=== PATIENT | female | born 1985 | race Caucasian/White ===

== ENCOUNTER 2025-02-17 05:15 | Emergency (ER) | payer BC, SELFPAY ==
--- NOTE | 2025-02-17 | XR_ITS ---
Examination: MRI brain without intravenous contrast. Date and time of exam: February 17, 2025, 1015 hrs. Indications: Blurred vision headaches dizziness today Technique: Multiple axial and sagittal images of the brain obtained. Siemens high-resolution 1.5 Lucy short bore scanners utilized. Sagittal sections, T1-weighted, TR 500, TE 14, are performed. Axial sections proton-density and T2-weighted have been obtained. Inversion recovery axial images, TR 9, 260, TE 111, TI 2500. Diffusion weighted images, axial sections, TR 4800, TE 128, B value 1000 Axial sections, ADC map, TR 4800, TE 128 Findings: Enlargement of the sella turcica is not present. The optic chiasm and infundibular are not remarkable. Prepontine and interpeduncular cisterns are not enlarged. There is no localized enlargement of the medulla or frantz. Fourth ventricle and cerebellar tonsils appear normal in position. No subacute area of hemorrhage density is seen. Mass in the cerebellopontine angle region is not evident. Globes symmetrical. Orbital musculature including medial lateral rectus muscles do not exhibit abnormality. Diffusion-weighted images demonstrate no focus of restricted diffusion.. Increased white matter signal not seen. Mass effect upon the ventricular system is not identified. Impression: Negative for acute hemorrhage, mass effect or midline shift. No acute infarct. No MR findings of demyelinating disease. Negative for mastoiditis
[2025-02-17 05:16] VITALS: BMI 25.0
[2025-02-17 05:24] VITALS: BP 108/68; PULSE 109; RESP 28; TEMP 36.1; O2SAT 98
--- NOTE | 2025-02-17 05:41 | EKG_ITS ---
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
--- NOTE | 2025-02-17 06:19 | XR_ITS ---
Examination: CT brain head without contrast. 2-D sagittal coronal reconstructions Date and time of exam:February 17, 2025, 0637 hours INDICATIONS: Dizziness episodes beginning 4 hours ago CTDI: vol (mGy):45.6 DLP: (mGycm):8 Technique: Multiple CT axial sections of the brain have been obtained, 5 mm slice thickness. Contrast has not been administered. 2-D sagittal, coronal reconstructions have been obtained Low dose protocols were performed. One or more of the following dose reduction techniques were used; automated exposure control, adjustment of the mA and/or KV according to patient size, use of iterative reconstruction technique. Findings: No significant ventricular enlargement. Intra-axial or extra-axial hemorrhage density is not seen. No mass effect or midline shift Basal cisterns are not remarkable. Fourth ventricle is midline. Cranial vault intact. Impression: Negative for acute hemorrhage, mass effect or midline shift Advise clinical correlation and follow up accordingly.
--- NOTE | 2025-02-17 06:31 | PD.EDRME ---
Rapid Medical Screening Exam RME Arrival date/time: 02/17/25 05:15 Chief Complaint: Shortness of Breath/Dyspnea Time Seen by Provider: 02/17/25 06:11 Vital signs: Vital Signs Temperature 97.0 F 02/17/25 05:24 Pulse Rate 109 H 02/17/25 05:24 Respiratory Rate 28 H 02/17/25 05:24 Blood Pressure 108/68 02/17/25 05:24 Pulse Oximetry (%) 98 02/17/25 05:24 Oxygen Delivery Method Room Air 02/17/25 05:24 Vital signs reviewed by provider: Yes RME Narrative: Patient is a 39-year-old female with medical history notable for Chiari malformation that in the emergency department with concerns for headache. Patient states that she is in the care of a neurologist and is pending an appointment to see a neurosurgeon next month. States that over the last 3 years her symptoms have been getting worse, and at times will present with numbness in her face as well as numbness on her body. Patient states that usually this is precipitated by coughing sneezing or other similar activities. Patient states that this time her headache woke her up from sleep and was not getting better so she came to the emergency department. Patient does not know what makes her symptoms better however she is allergic to antibiotics including penicillins and cephalosporins, diazepam and gabapentin. Does not drink use drugs or alcohol. No recent travel sick contacts fevers chills nausea abdominal pain dysuria hematuria melena bloody stools. Patient states that she had 1 episode of urinary incontinence last week after an episode of coughing however states that the urinary incontinence was not during the cough. Denies any numbness in her lower extremities or saddle anesthesia.
[2025-02-17 07:20] LABS: Collection Type, Urine Clean Catch
[2025-02-17 07:26] LABS: Basophils # (Auto) 0.0 Thou/mm3 (0.0-0.2); Basophils % (Auto) 0 % (0-2.5); Eosinophils # (Auto) 0.0 Thou/mm3 (0.0-0.5); Eosinophils % (Auto) 0 % (0-10); Hematocrit 43.7 % (36.0-46.0); Hemoglobin 15.4 g/dL (12.0-16.0); Immature Granulocytes Auto 0.03 Thou/mm3 (0.00-0.00); Lymphocytes # (Auto) 1.4 Thou/mm3 (1.0-4.8); Lymphocytes % (Auto) 19 % (10-50); Mean Corpuscular HGB Conc 35.2 g/dl (31.0-37.0); Mean Corpuscular Hemoglobin 31.2 pg (25.0-35.0); Mean Corpuscular Volume 89 fL (80-100); Monocytes # (Auto) 0.5 Thou/mm3 (0.0-0.8); Monocytes % (Auto) 7 % (0-12); Neutrophils # (Auto) 5.3 Thou/mm3 (1.8-7.7); Neutrophils % (Auto) 73 % (37-80); Nucleated Red Blood Cell # 0.00 Thou/mm3 (0.00-0.00); Nucleated Red Blood Cell % 0 /100 WBC (0); Platelet Count 278 Thou/mm3 (140-440); RDW Standard Deviation 38.4 fL (36.4-46.3); Red Blood Count 4.93 Miln/mm3 (4.00-5.20); White Blood Count 7.3 Thou/mm3 (3.6-11.0)
[2025-02-17 07:32] LABS: HCG,Qualitative Serum Negative
[2025-02-17 07:39] LABS: Alanine Aminotransferase 14 U/L (10-49); Albumin, Serum 4.8 gm/dL (3.5-5.0); Albumin/Globulin Ratio 1.7 (1.2-2.2); Alkaline Phosphatase 57 U/L (46-116); Anion Gap 12 (7-16); Aspartate Amino Transferase 20 U/L (0-34); BUN/Creatinine Ratio 5 Ratio (12-20); Bilirubin,Total 1.0 mg/dL (0.3-1.2); Blood Urea Nitrogen < 5 mg/dL (9-23); Calcium 10.2 mg/dL (8.3-10.6); Calcium (Corrected) 10.2 mg/dL (8.5-10.1); Carbon Dioxide 24.7 mMol/L (20.0-31.0); Chloride 105 mMol/L (98-107); Creatinine (Component) 1.0 mg/dL (0.6-1.3); Estimated Creatinine Clearance 69.3 mL/min (>60); Globulin 2.8 gm/dL (2.3-3.5); Glucose 89 mg/dL (74-106); Osmolality,Calculated 279 (275-295); Potassium 3.9 mMol/L (3.4-5.1); Sodium 142 mMol/L (136-145); Total Protein 7.6 gm/dL (5.7-8.2); eGFR > 60 See Note
[2025-02-17 08:21] LABS: Bilirubin,Urine Negative (Negative); Blood,Urine Negative (Negative); Clarity,Urine Clear (Clear/Hazy); Color,Urine Colorless (Lt Yel-Yel); Culture Indicated,Urine Not Indicated; Glucose, Urine Negative (Negative); Ketones,Urine 1+ (Negative); Leukocyte Esterase,Urine Negative (Negative); Nitrite,Urine Negative (Negative); PH,Urine 6.5 (5.0-7.0); Protein,Urine Negative (Neg - Trace); RBC,Urine < 1 /hpf (0-3); Specific Gravity,Urine 1.004 (1.001-1.035); Squamous Epithelial Cell,Urine 3 /hpf (0-5); Urobilinogen,Urine Negative mg/dL (0.0-1.0); WBC,Urine < 1 /hpf (0-5)
[2025-02-17 08:45] VITALS: BP 110/77; PULSE 86; RESP 19; TEMP 36.8; O2SAT 99
--- NOTE | 2025-02-17 09:04 | PD.EDHA ---
ED Headache RME/HPI General Chief Complaint: Shortness of Breath/Dyspnea Stated Complaint: DIFFICULTY BREATHING AND DIZZY Time Seen by Provider: 02/17/25 06:11 Arrival date/time: 02/17/25 05:15 Limitations: no limitations RME / HPI RME / HPI Narrative: DR. CLINTON HOOVER ED EVALUATION: 39-year-old female with a history of Chiari malformation presents to the Emergency Department for evaluation of a severe throbbing headache rated 10/10, which improved to 7/10 after treatment with Reglan, Benadryl, and IV fluids. She reports associated dizziness and episodes of blurry vision during these headaches. The patient follows with a neurologist and has a neurosurgery appointment scheduled for next month. She states that her symptoms have progressively worsened over the last three years and are often triggered by coughing, sneezing, or similar activities. Today?s headache was different in that it woke her from sleep and did not improve, prompting her visit. She also reports a single episode of urinary incontinence last week following a coughing episode, though the incontinence did not occur during the cough. She denies numbness in the lower extremities, recent travel, sick contacts, fevers, chills, nausea, abdominal pain, dysuria, hematuria, melena, or hematochezia. She does not use alcohol, tobacco, or recreational drugs. Allergies include penicillins, cephalosporins, diazepam, and gabapentin. Related Data Previous Rx's ?Medication ?Instructions ?Recorded ganciclovir 0.15 % eye gel (Zirgan) 1 drp Right eye 5 TIMES DAILY 12/02/13 Infection ##1 hydrocodone 5 mg-acetaminophen 325 1 tab PO BID PRN pain #10 tabs 02/14/24 mg tablet Allergies Allergy/AdvReac Type Severity Reaction Status Date / Time diazepam (From Valium) Allergy Severe Anxiety Verified 02/17/25 10:02 cephalexin Allergy Unknown Rash Verified 02/20/24 03:40 latex Allergy Unknown Rash Verified 02/20/24 03:40 Penicillins Allergy Unknown Rash Verified 02/20/24 03:40 Sulfa (Sulfonamide Allergy Unknown Rash Verified 02/20/24 03:40 Antibiotics) cefdinir Allergy Rash Verified 02/20/24 03:40 Review of Systems Review of Systems Systems Reviewed: All systems reviewed, normal except as documented Past Medical History Past Medical History NEUROLOGIC: Positive Neurological Disorders (CHIARI MALFORMATION) Family History FAMILY HISTORY: Positive Family Cancer (PT'S FATHER NON-HODGKIN'S) Social History SMOKING STATUS: Never smoker ED Exam General Limitations: Present no limitations General appearance: Present alert and in no apparent distress Head Head exam: Present atraumatic, normocephalic and normal inspection Eye Eye exam: Present nystagmus (mild right sided horizontal nystagmus) ENT ENT exam: Present normal exam, normal oropharynx and mucous membranes moist Neck Neck exam: Present normal inspection, full ROM and trachea midline Chest Chest inspection: Present normal inspection and symmetric chest wall rise Respiratory Respiratory exam: Present normal lung sounds bilaterally Cardiovascular Cardiovascular exam: Present regular rate, normal rhythm and normal heart sounds Abdominal Exam Abdominal exam: Present soft and normal bowel sounds Extremities Exam Extremities exam: Present normal inspection and full ROM Back Exam Back exam: Present normal inspection and full ROM Neurological Exam Neurological exam: Present alert, oriented X3 and CN II-XII intact Psychiatric Psychiatric exam: Present normal affect and normal mood Skin Skin exam: Present warm, dry, intact and normal color Course Quality Measures none Orders Category Date Time Status EKG (ED ONLY) *Do not use* NOW Care 02/17/25 05:41 Completed MRI Screening NOW Care 02/17/25 06:[address] head/brain wo con Stat Exams 02/17/25 06:19 Completed EKG (ED Only) Stat Exams 02/17/25 05:41 Draft MR head/brain wo con Stat Exams 02/17/25 Completed CBC Stat Lab 02/17/25 06:56 Completed CMP [Comprehensive Metabolic Panel] Stat Lab 02/17/25 06:56 Completed HCG,Qualitative Serum Stat Lab 02/17/25 06:56 Completed UA, C/S IF [Urinalysis, C/S if Indicated] Stat Lab 02/17/25 07:06 Completed Acetaminophen Ivpb [Ofirmev Inj] Med 02/17/25 09:36 Discontinued 1,000 mg in 100 ml IV NOW Diazepam Inj [Valium Inj] Med 02/17/25 09:49 Discontinued 2.5 mg IVP X1 ONE DiphenhydrAMINE INJ [Benadryl Inj] Med 02/17/25 06:18 Discontinued 25 mg IVP X1 ONE LORazepam [Ativan] Med 02/17/25 10:01 Discontinued 0.5 mg PO X1 ONE Metoclopramide Inj [Reglan Inj] Med 02/17/25 06:18 Discontinued 5 mg IVP STAT STA Ringers Lactated 1000 ml [Lactated Ringers] 1,000 ml Med 02/17/25 06:17 Discontinued IV 999 mls/hr Vital Signs Vital signs: Vital Signs Temperature 97.0 F 02/17/25 05:24 Pulse Rate 109 H 02/17/25 05:24 Respiratory Rate 28 H 02/17/25 05:24 Blood Pressure 108/68 02/17/25 05:24 Pulse Oximetry (%) 98 02/17/25 05:24 Oxygen Delivery Method Room Air 02/17/25 05:24 Headache MDM Narrative MDM Narrative:: I, Katy Trinidad, bronson scribing for and in the presence of Dr. Mitchell. Patient data External records reviewed:: [facility] previous records Clinical information provided by:: patient and spouse Social determinants that could affect healthcare access:: none Patient has the following chronic illnesses:: History of Chiari malformation. Allergies include penicillins, cephalosporins, diazepam, and gabapentin. How is presenting disease/condition affected by chronic disease/condition?: exacerbated by Evaluation data The following diagnostics were reviewed and interpreted by me:: lab results, radiology exam(s) and EKG tracing(s) (My interpretation: EKG performed at 0549 hours, sinus tachycardia, rate 102, normal axis, no ectopy, no signs of acute ischemia, no STEMI) Lab and/or radiology exams considered but not ordered:: none Interpretation Summary: Procedure(s): CT head/brain wo con Accession Number(s): [id number] cc: Brian Pleitez MD; Rina Torres MD~ Examination: CT brain head without contrast. 2-D sagittal coronal reconstructions Date and time of exam:February 17, 2025, 0637 hours INDICATIONS: Dizziness episodes beginning 4 hours ago CTDI: vol (mGy):45.6 DLP: (mGycm):8 Technique: Multiple CT axial sections of the brain have been obtained, 5 mm slice thickness. Contrast has not been administered. 2-D sagittal, coronal reconstructions have been obtained Low dose protocols were performed. One or more of the following dose reduction techniques were used; automated exposure control, adjustment of the mA and/or KV according to patient size, use of iterative reconstruction technique. Findings: No significant ventricular enlargement. Intra-axial or extra-axial hemorrhage density is not seen. No mass effect or midline shift Basal cisterns are not remarkable. Fourth ventricle is midline. Cranial vault intact. Impression: Negative for acute hemorrhage, mass effect or midline shift Advise clinical correlation and follow up accordingly. Dictated By: Brian Pleitez MD Procedure(s): MR head/brain wo con Accession Number(s): [id number] cc: Brian Pleitez MD; Misael Lewis MD; Rina Torres MD~ Examination: MRI brain without intravenous contrast. Date and time of exam: February 17, 2025, 1015 hrs. Indications: Blurred vision headaches dizziness today Technique: Multiple axial and sagittal images of the brain obtained. Siemens high-resolution 1.5 Lucy short bore scanners utilized. Sagittal sections, T1-weighted, TR 500, TE 14, are performed. Axial sections proton-density and T2-weighted have been obtained. Inversion recovery axial images, TR 9, 260, TE 111, TI 2500. Diffusion weighted images, axial sections, TR 4800, TE 128, B value 1000 Axial sections, ADC map, TR 4800, TE 128 Findings: Enlargement of the sella turcica is not present. The optic chiasm and infundibular are not remarkable. Prepontine and interpeduncular cisterns are not enlarged. There is no localized enlargement of the medulla or frantz. Fourth ventricle and cerebellar tonsils appear normal in position. No subacute area of hemorrhage density is seen. Mass in the cerebellopontine angle region is not evident. Globes symmetrical. Orbital musculature including medial lateral rectus muscles do not exhibit abnormality. Diffusion-weighted images demonstrate no focus of restricted diffusion.. Increased white matter signal not seen. Mass effect upon the ventricular system is not identified. Impression: Negative for acute hemorrhage, mass effect or midline shift. No acute infarct. No MR findings of demyelinating disease. Negative for mastoiditis Dictated By: Brian Pleitez MD Medications / Prescriptions Medications or Prescriptions considered but not ordered:: none Medication administrations:: Medication Administration History Discontinued Medications Diazepam (Diazepam Inj 5 Mg/Ml Vial 2 Ml) 2.5 mg IVP X1 ONE Stop: 02/17/25 09:50 Last Admin: 02/17/25 10:03 Dose: Not Given Documented By: CARMELLA Non-Admin Reason: Allergy Comments: NOT GIVEN Diphenhydramine HCl (Diphenhydramine Inj 50 Mg/Ml Vial) 25 mg IVP X1 ONE Stop: 02/17/25 06:19 Last Admin: 02/17/25 09:16 Dose: 25 mg Documented By: CARMELLA Lactated Ringer's (Lactated Ringers) 1,000 mls @ 999 mls/hr IV .Q1H1M ONE Stop: 02/17/25 07:17 Last Infusion: 02/17/25 11:15 Dose: Infused Documented By: Admin: 02/17/25 09:15 Dose: 999 mls/hr Documented By: CARMELLA Acetaminophen (Ofirmev Inj) 1,000 mg in 100 mls @ 250 mls/hr IV NOW ONE Stop: 02/17/25 09:59 Last Admin: 02/17/25 11:07 Dose: 250 mls/hr Documented By: CARMELLA Lorazepam (Lorazepam 0.5 Mg Tablet) 0.5 mg PO X1 ONE Stop: 02/17/25 10:02 Last Admin: 02/17/25 10:07 Dose: 0.5 mg Documented By: CARMELLA Metoclopramide HCl (Metoclopramide Inj 5 Mg/Ml Vial 2 Ml) 5 mg IVP STAT STA; Protocol Stop: 02/17/25 06:19 Last Admin: 02/17/25 09:16 Dose: 5 mg Documented By: CARMELLA see above Consultations Consultation(s) initiated? (list below): No Diagnosis Differential diagnosis headache: other (Chiari malformation exacerbation, increased intracranial pressure, and migraine headache.) Most likely diagnosis given after review of the tests above:: Chiari malformation type I Headache Vertigo Admission Indicated Admission indicated?: not indicated Admission Request Was there a request for admission?: No Disposition Plan Disposition Plan: Discharge Discharge Attestation Discharge Attestation: The patient and all family members were given an opportunity to ask questions and understood the discharge instructions. Discharge instructions specifically effects, indications for sooner follow up or return to the emergency department, and the expected course of current diagnosis. Patient condition: Stable Discharge Plan Plan Patient Disposition: HOME (Self Care) Discharge Disposition comment: Stable for discharge home Patient condition on transfer: Stable Prescriptions/Referrals Prescriptions/Med Rec: No Action ganciclovir [Zirgan] 5 GM gel 1 drp Right eye 5 TIMES DAILY Qty: 1 0RF hydrocodone-acetaminophen 5-325 mg tablet 1 tab PO BID MDD 10 PRN (Reason: pain) Qty: 10 0RF Referrals: Misael Lewis MD [Primary Care Provider] - In 1 week Problem List Clinical Impression: Chiari malformation type I, Headache, Vertigo Patient/Caregiver Discharge Instructions Discharge Activity: activity as tolerated Education Materials: Chiari Malformation Type I Additional Instructions: Today you were seen in the emergency department for a flareup of your Chiari malformation symptoms. We gave you 3 medicines called diphenhydramine, metoclopramide and IV Tylenol. These seem to have worked really well in controlling your headache You should keep your appointment with the neurosurgeon next month and Safia. Please return to the ER if you have any further medical problems or worsening and we will help you. Otherwise you should follow-up with your primary care doctor within the next several days Print Language: Bulgarian Stand Alone Forms: Edel Award Info., Patient Portal Info Letter
[2025-02-17 09:09] VITALS: BMI 22.1
[2025-02-17] MEDS: RINGERS LACTATED 1000 ML 1,000 ML 999 ML IV (09:15)
[2025-02-17] MEDS: METOCLOPRAMIDE INJ 5 MG/ML VIAL 2 ML IVP (09:16)
[2025-02-17] MEDS: ACETAMINOPHEN IVPB 1,000 MG/100 ML VIAL 250 MG IV (11:07)
[2025-02-17 11:12] VITALS: BP 130/91; PULSE 71; RESP 15; TEMP 36.7; O2SAT 99
[2025-02-17 12:23] VITALS: BP 109/65; PULSE 91; RESP 14; TEMP 36.7; O2SAT 97
== END 2025-02-17 12:31 | disposition home or self-care (01) ==
PROVIDERS: Emergency Medicine; Emergency Provider Emergency Medicine; PCP Family Medicine
DX: G93.5 Compression of brain (principal); R51.9 Headache, unspecified; R55 Syncope and collapse
CPT/HCPCS: 36415; 70450; 70551; 80053; 81001; 84703; 85025; 93005; 96361; 96374; 96375; 99283; J0131; J1200; J2765; J7120; A9270